=== PATIENT | male | born 1985 | race Caucasian/White ===

== ENCOUNTER 2023-06-04 15:21 | Emergency (ER) | payer SELFPAY ==
[2023-06-04 16:10] VITALS: BP 128/89; PULSE 63; RESP 16; TEMP 36.6; O2SAT 96; BMI 43.2
--- NOTE | 2023-06-04 18:54 | W.ED.EAR ---
HPI - Ear Problem General: Chief complaint: Ear Stated complaint: right side ear/jaw problems Time Seen by Provider: 06/04/23 18:54 History of Present Illness: 38-year-old male patient comes in today with increased pain and swelling to the right outer ear. Patient was seen yesterday and started on some Ciprodex eardrops with minimal to no relief. Patient came to the ER due to ear canal fully swelling shut. Patient also reports some swelling in front of the ear and behind the ear. Patient denies any fever or chills. Patient does take metformin for early diabetes. Associated symptoms: Reports ear or mastoid pain Review of Systems General: Reports: 10 or more systems reviewed and unremarkable except in HPI and below ENMT: Reports: ear or mastoid pain and ear discharge Physical Exam Const: COMMON NORMALS: alert HENMT: EXTERNAL AUDITORY CANAL: Abnormal EAC present EAC laterality: right Details: erythema and edema TYMPANIC MEMBRANE: TM abnormal TM laterality: right Details: other (Difficulty to visualize due to canal swelling) Neck/C-Spine: COMMON NORMALS: full ROM Resp: COMMON NORMALS: normal respiratory effort and clear to auscultation bilaterally AUSCULTATION: clear to auscultation bilaterally Cardio: COMMON NORMALS: regular rate and regular rhythm RATE: regular rate RHYTHM: regular rhythm GI: COMMON NORMALS: Soft to palpation PALPATION: Yes Soft to palpation Neuro: SENSORIUM/ORIENTATION: Yes alert Skin: COMMON NORMALS: turgor normal GENERAL SKIN EXAM: turgor normal Course Vital Signs: Vital signs: Vital Signs Temperature 97.9 F 06/04/23 16:10 Pulse Rate 63 06/04/23 16:10 Respiratory Rate 16 06/04/23 16:10 Blood Pressure 128/89 06/04/23 16:10 Pulse Oximetry 96 06/04/23 16:10 Oxygen Delivery Me thod Room Air 06/04/23 16:10 MDM - Ear Medical Decision Making 48-year-old male patient comes in today with increased swelling and redness to the ear canal and outer ear on the right side. Patient was started on Ciprodex eardrops yesterday for otitis externa. Patient reports worsening symptoms today. On exam patient appears nontoxic. Respirations are even lungs are clear to auscultation. Visualization of the right auditory ear canal notes significant swelling and redness with exudate. Unable to visualize the tympanic membrane due to the swelling of the ear canal. Differential diagnosis includes but not limited to cellulitis of the ear, malignant otitis externa, mastoiditis. Patient was given 1 g Rocephin IM, 1 tablet of Bactrim DS for full coverage of infectious agents including strep, and staph. Patient is already on Cipro to cover for Pseudomonas. Patient be continued on Augmentin and Bactrim along with otic drops. Patient was written for a few hydrocodone to use as needed for severe pain. Patient was recommended to follow-up in 2 days with primary care return to ER for worsening symptoms such as high fever or new concerns. Patient stated understanding. Discharge Plan Discharge Patient Disposition: Home Clinical Impression: Cellulitis of right ear canal Condition: Stable Prescriptions: New amoxicillin-pot clavulanate 875-125 mg tablet 1 tab PO BID Qty: 14 0RF Bactrim DS 800-160 mg tablet 1 tab PO DAILY 7 Days Qty: 14 0RF hydrocodone-acetaminophen 5-325 mg tablet 1 tab PO Q6H PRN (Reason: pain (scale score 7-10)) Qty: 7 0RF Discharge Orders: Discharge ED (Routine); Ordered 06/04/23 Ordered By: León Heck Referrals: Emiliana Jacobson DO [Primary Care Provider] - Discharge Diet: Usual diet Discharge Activity: Increase activity as tolerated Patient Instructions: Cellulitis (ED) Activity Restrictions/Additional Instructions: Continue antibiotic eardrops as directed. Take amoxicillin?potassium clavulanate 1 tablet 2 times a day for the next 7 days. Also take sulfamethoxazole?trimethoprim 1 tablet 2 times a day for the next 7 days. These antibiotics will allow for complete coverage of the common bacteria in the sort of ear infection. Use acetaminophen and ibuprofen to help control pain. Use hydrocodone for severe pain. Follow-up with primary care in 3 to 5 days for recheck. Return to ED for worsening symptoms such as fever greater than 100.4, inability to hold fluids down, or new concerns. Coding Level of Care Code ED Outpatient Coding Specialist for Faina Deluca
[2023-06-04] MEDS: cefTRIAXone 1,000 MG in water for injection-sterile 2.1 ML 1 MG IM (19:12)
[2023-06-04] MEDS: dexamethasone 10 mg/mL INJ IM (19:13)
[2023-06-04] MEDS: sulfamethoxazole-trimeth DS 160-800 mg Tablet 1 TAB PO (19:13)
[2023-06-04] MEDS: HYDROcodone-acetaminophen 10-325 mg Tablet 1 TAB PO (19:13)
== END 2023-06-04 19:35 | disposition home or self-care (01) ==
PROVIDERS: Emergency Provider Nurse Practitioner Family; PCP Family Medicine
DX: H60.11 Cellulitis of right external ear (principal)
CPT/HCPCS: 96372; 99284; J0696; J1100